=== PATIENT | male | born 2000 | race Caucasian/White ===

== ENCOUNTER 2020-10-02 08:51 | Emergency (ER) | payer OTHER, SELFPAY ==
[2020-10-02 09:05] VITALS: BP 131/61; PULSE 69; RESP 16; TEMP 36.6; O2SAT 100
--- NOTE | 2020-10-02 09:32 | ED.MALEGU ---
HPI - Male Genitourinary General Chief complaint: Urogenital-Male Stated complaint: Possible UTI Time Seen by Provider: 10/02/20 09:20 Source: patient Mode of arrival: ambulatory Limitations: no limitations History of Present Illness HPI Narrative: Casandra Burr is a 19 yo male with no PMH who comes to [facility] with complaints of urinary frequency and difficulty feeling like he can empty his bladder started in the last 3 to 4 days. Denies any scrotal tenderness or swelling. Related Data Allergies Allergy/AdvReac Type Severity Reaction Status Date / Time No Known Allergies Allergy Verified 10/02/20 09:40 Review of Systems Review of Systems: Narrative: CONSTITUTIONAL: Denies fever, chills, sweats. EYES: Denies visual changes, redness, discharge. ENT: Denies rhinorrhea, congestion, sore throat, otalgia. CARDIOVASCULAR: Denies chest pain, palpitations, edema. RESPIRATORY: Denies dyspnea, wheezing, cough GASTROINTESTINAL: Denies abdominal pain, nausea, vomiting, diarrhea. GENITOURINARY: Has dysuria, hematuria, abnormal discharge SKIN: Denies rash or itching. NEUROLOGIC: Denies numbness, or focal weakness. PSYCHIATRIC: Denies anxiety or depression. PMFSH Past Medical History Medical History No acute medical problems Family History Family History Mother Diabetes mellitus Social History Social History (Updated 10/02/20 @ 09:38 by Nora Grijalva CNP) Smoking packs per day: 0.5 Smoking cigarettes per day: 10.0 Smoking status: Current every day smoker Tobacco type: e-cigarettes/vaping Alcohol intake: current Alcohol use details: Have been drinking more excessively up to 4 months ago and is now rarely drinking Gender identity (if verbalized by the patient): Male Comments At time of signature, I agree with nursing past medical, surgical, social and family history. There is no relevant family history pertinent to the presenting complaint. Exam Narrative: Exam Narrative: GENERAL: This is a well-nourished, well-developed patient, in mild distress. HEAD: normocephalic, atraumatic. EYES: Sclera clear/white. Vision is grossly intact. EARS: External ears normal, . Hearing grossly intact. NOSE: External nose normal without nasal discharge, nares without redness, no rhinorrhea. THROAT: Mucous membranes moist, NECK: Neck supple, CARDIOVASCULAR: Regular rate and rhythm without murmurs, gallops, or rubs. RESPIRATORY: Clear to auscultation. Breath sounds equal bilaterally. No wheezes, rales, or rhonchi. GASTROINTESTINAL: Abdomen soft, non-tender, SKIN: warm, intact with no suspicious lesions or rash, good texture and turgor. NEURO: awake, alert, and oriented to person, place and time. There were no obvious focal neurologic abnormalities. Steady gait EXTREMITIES: Normal range of motion. BACK: Nontender without deformity Course Course Emergency Course: [facility] of dysuria and difficulty starting stream that has been going on for least 3 to 4 days he denies any having any pain but cannot feel like he fully empties his bladder UA is negative but based on his symptoms we will treat with Rocephin and doxycycline and if there is no improvement in his dysuria he is to see a urologist for check of spasm/stricture/prostate enlargement Vital Signs Vital signs: Vital Signs Temperature 98 F 10/02/20 09:05 Pulse Rate 69 10/02/20 09:05 Respiratory Rate 16 10/02/20 09:05 Blood Pressure 131/61 10/02/20 09:05 Pulse Oximetry 100 10/02/20 09:05 Temperature 98 F 10/02/20 09:05 Pulse Rate 69 10/02/20 09:05 Respiratory Rate 16 10/02/20 09:05 Blood Pressure 131/61 10/02/20 09:05 Pulse Oximetry 100 10/02/20 09:05 MDM - Male Genitourinary Differential Diagnosis Differential diagnosis: Likely urinary tract infection, epididymitis, prostatitis and
[2020-10-02] MEDS: cefTRIAXone 250 MG VIAL 500 MG IM (09:50)
[2020-10-02] MEDS: LIDOCAINE HCL 1% LOCAL INJ 20 ML VIAL 2.1 ML IM (09:51)
== END 2020-10-02 10:14 | disposition home or self-care (01) ==
PROVIDERS: Emergency Provider Nurse Practitioner
DX: R30.0 Dysuria (principal); F17.210 Nicotine dependence, cigarettes, uncomplicated
CPT/HCPCS: 81003; 87086; 87088; 87491; 87591; 87661; 96372; 99213; G0463; J0696